=== PATIENT | male | born 1955 | race Caucasian/White ===

== ENCOUNTER 2017-11-25 15:47 | Inpatient (IN) | payer OTHER ==
[~2017-11-25] VITALS: Ht 190.5 cm; Wt 133.5 kg
--- NOTE | ~2017-11-25 | OP ---
PATIENT NAME: DARREL MAGUIRE MEDICAL RECORD: [id number] :53 LOCATION:D. D.2111 ADMISSION DATE:11/25/17 SURGEON: DAVID MCRAE MD DATE OF OPERATION: 11/27/2017 PREOPERATIVE DIAGNOSIS: Left axillary abscess. POSTOPERATIVE DIAGNOSIS: Left axillary abscess. Please see dimensions below. PROCEDURES: Excisional debridement of left axillary abscess with marsupialization and packing of the wound. The dimensions of the debridement, including margins, measured 2.2 x 2.4 cm and included skin and subcutaneous tissue as well as abscess cavity. The risks, possible complications, and alternatives to the procedure were explained to the patient. He elects to proceed. OPERATIVE COURSE: The patient was conveyed to the operating room electively on 11/27/2017. General anesthesia was induced by the anesthesia staff. The left axilla was sterilely prepped and draped. Through the use of sharp dissection, I excised a plug of skin and subcutaneous tissue as well as a portion of the abscess cavity. The dimensions are listed above. I then sharply debrided back to healthy bleeding tissue. Cultures were obtained. Blunt dissection was performed within the abscess cavity. I curetted out the abscess cavity as well. I then marsupialized the wound with a running-locking 3-0 Vicryl Rapide suture. I then irrigated the abscess cavity with hydrogen peroxide. I then packed the abscess cavity with two 2-inch Kerlix, which were tied together. A sterile dressing was applied. The patient was then extubated and conveyed to the postanesthesia care unit, where he was in stable condition. I am going to recommend that he stay in the hospital tomorrow and have the wound unpacked on Tuesday and then be dismissed home on oral antibiotics on Tuesday. TRANSINT:[id number] Voice Confirmation ID: [id number] DOCUMENT ID: [id number] DAVID MCRAE MD at 1042 CC: EPI JAMES MD [id number] DICTATION DATE: 11/27/17 0934 GRAFFITI CLEANER: 11/27/17 1555 DIS IN 11/29/17 [place] [id number] [place] [id number]
--- NOTE | ~2017-11-25 | PN ---
PATIENT:DARREL MAGUIRE MEDICAL RECORD: [id number] LOCATION:D.M2 D.211 ADMISSION DATE: 11/25/17 PROGRESS NOTE DATE OF SERVICE: 11/26/2017 ADDENDUM CHIEF COMPLAINT: Better. HISTORY: There is now some central softening in the area of cellulitis, which is now smaller. I think this represents some subcutaneous purulence that would benefit from incision and drainage versus excisional debridement. My plan will be for excisional debridement with marsupialization and packing of the wound. Palpation aggravates. Nothing alleviates. His symptoms are improved. They are nonradiating. This is a progress note addendum. For the typed portion of the progress note, please see the chart. This would include the past medical and surgical history, current medications, allergies, social history as well as family history. REVIEW OF SYSTEMS: No headache, no chest pain, no fever, no chills, no nausea, no vomiting. The review of systems is negative other than as is described above. PHYSICAL EXAMINATION: GENERAL: The patient does not appear acutely ill. He does not appear chronically ill. VITAL SIGNS: Reviewed. EARS: External ears appear normal. EYES: Extraocular movements are intact. NECK: Trachea is midline. CHEST: No intercostal retractions. PULMONARY: Nonlabored. No stridor. ABDOMEN: No peritonitis with movement. PSYCHIATRIC: Normal affect. NEUROLOGIC: Nonfocal, no lethargy. The patient answers questions appropriately, moves all extremities well. BACK: No thoracic kyphosis. LYMPHATIC: No lymphangitic streaking of the exposed extremities. INTEGUMENT: There is cellulitis as described above in the left axilla. IMPRESSION: Left axillary abscess, likely not due to hidradenitis suppurativa. PLAN: Drainage in the operating room tomorrow as described above. The risks, possible complications and alternatives to procedure were explained to the patient. He elects to proceed. TRANSINT:[id number] Voice Confirmation ID: [id number] DOCUMENT ID: [id number] PROGRESS NOTE [id number] DARREL MAGUIRE ROBERT MD at 1042 CC: [id number] DICTATION DATE: 11/26/171931 SEAMLESS TUBE ROLLER: 11/27/17 1518 DIS IN 11/29/17 [place] [id number] [place] [id number]
--- NOTE | ~2017-11-25 | HP ---
PATIENT: DARREL MAGUIRE MEDICAL RECORD: [id number] ACCOUNT: [id number] LOCATION:[facility].211 : 53 ADMISSION DATE: 11/25/17 HISTORY AND PHYSICAL EXAMINATION HISTORY OF PRESENT ILLNESS: This is a 62-year-old white male who presented to my office on 11/24/2017 complaining of pain, redness and swelling in the left axilla, started a couple of days prior. He had what appears to be an abscess in the axilla. There was no head, it seemed to be a little deeper than just there was a skin. I gave him a shot of Rocephin and started on clindamycin, had him come back on 11/25/2017. At that time, the mass had gotten almost to a size of a baseball and he developed cellulitis in the axilla and it stretched into the left upper chest area. He denies any fever. There was no drainage from this area, but with worsening symptoms, he is admitted for failed outpatient therapy of left axilla abscess with cellulitis. PAST MEDICAL HISTORY: He has hypertension. PAST SURGICAL HISTORY: None. ALLERGIES: PENICILLIN AND SULFA. MEDICATIONS: Home medications included amlodipine 5 mg once a day, losartan 100 mg once a day, fish oil 1000 mg one a day, and he was just started on clindamycin the day before admission. SOCIAL HISTORY: He is . FAMILY HISTORY: Father at 82. He had coronary artery disease and had an OK. Mother is alive and relatively healthy. HABITS: No tobacco, alcohol, or drugs. REVIEW OF SYSTEMS: GENERAL: No major weight changes. HEENT: No particular sinus or allergy problems. RESPIRATORY: No history of emphysema or asthma. CARDIAC: No coronary artery disease. GASTROINTESTINAL: No significant problem with reflux, constipation, or diarrhea. GENITOURINARY: No significant problems there. MUSCULOSKELETAL: No significant joint aches and pains. NEUROLOGIC: No headaches or seizures. PSYCHIATRIC: Denies depression or melancholia. PHYSICAL EXAMINATION: VITAL SIGNS: Temperature 99.0, pulse 90, respirations 18, blood pressure 119/82. GENERAL: He is awake and alert, does not appear to be in acute distress. HEENT: Unremarkable. NECK: Supple. HEART: Regular rate and rhythm. LUNGS: Clear. ABDOMEN: Soft, flat, nontender. EXTREMITIES: No edema. In the left axilla area, there is a painful mass almost HISTORY AND PHYSICAL [id number] TING,DARREL M a size of a baseball. There is no open wound, no head on this. There is corresponding cellulitis in the axilla and it spreads over the left chest. ASSESSMENT: Cutaneous abscess, left axilla with cellulitis. PLAN: We will start IV antibiotics. We will consult general surgery to see if they feel it needs to be opened and drained. Other tests and procedures as warranted. TRANSINT:[id number] Voice Confirmation ID: [id number] DOCUMENT ID: [id number] EPI JAMES MD at 1826 CC: [id number] DICTATION DATE: 11/27/17 0109 [facility] NURSE: 11/27/17 0853 ADM IN [facility] [address] [place] [address]
--- NOTE | ~2017-11-25 | CN ---
PATIENT NAME:DARREL MAGUIRE MEDICAL RECORD: [id number] : 53 LOCATION:D. D.2112 ADMIT DATE: 11/25/17 ACCOUNT: [id number] CONSULTING PHYSICIAN: DAVID MCRAE MD REFERRING PHYSICIAN: EPI JAMES MD DATE OF CONSULTATION: 11/25/2017 ADDENDUM CHIEF COMPLAINT: Infection. The patient has left axillary cellulitis. I cannot definitely tell whether there is drainable purulence or not. The area of cellulitis has been increasing and is now extending down on to the left breast and the left chest wall. The patient received some intramuscular antibiotic injections at his primary care physician's office as well as was placed on oral antibiotics. He failed outpatient treatment. Palpation aggravates. Nothing alleviates. Symptoms are dull. They are moderate in intensity. I would like to wait until a soft area within the area of cellulitis occurred or the infection begins to point before proceeding with incision and drainage or excisional debridement. This is a consultation note addendum. For the typed portion of the consult note, please see the chart. This would include the past medical and surgical history, current medications, allergies, social history as well as family history. REVIEW OF SYSTEMS: No nausea. No vomiting. No headache. No back pain. No abdominal pain. The review of systems is negative other than as is described above. PHYSICAL EXAMINATION: GENERAL: The patient does not appear acutely ill. He does not appear chronically ill. VITAL SIGNS: Reviewed. EARS: External ears appear normal. EYES: Extraocular movements are intact. NECK: Trachea is midline. CHEST: No intercostal retractions. PULMONARY: Nonlabored. No stridor. ABDOMEN: No peritonitis with movement. INTEGUMENT: As described above. PSYCHIATRIC: Normal affect. NEUROLOGIC: Nonfocal, no lethargy. The patient answers questions appropriately. Moves all extremities well. BACK: No thoracic kyphosis. LYMPHATICS: No lymphangitic streaking of the exposed extremities. IMPRESSION: Cellulitis versus early abscess of the left axilla. I do not think this represents hidradenitis suppurativa. PLAN: Continue IV antibiotics. I am going to add the vancomycin to the antibiotic regimen. Serial examinations and if the infected area begins to point or there is central softening of the tissues, then I will proceed with drainage in the operating room. TRANSINT:[id number] Voice Confirmation ID: [id number] DOCUMENT ID: [id number] CONSULT REPORT [id number] DARREL MAGUIRE ROBERT MD at 1042 CC: [id number] DICTATION DATE: 11/26/171929 DIRECTOR OF EDUCATION: 11/27/17 0150 DIS IN 11/29/17 [facility] [address] [place] [id number]
[2017-11-25 16:44] VITALS: BMI 37.0
[2017-11-25] MEDS ORDERED: COZAAR100 MG PO (16:49)
[2017-11-25] MEDS ORDERED: NORVASC5 MG PO (16:50)
[2017-11-25 18:32] LABS: BASOPHILS 0.3 % (0-2); EOSINOPHILS 0.8 % (0-7); HEMOGLOBIN 15.8 g/dL (13.5-17.5); IMMATURE GRANULOCYTES 0.2 % (0-5); LYMPHOCYTES 13.1 % (15-50); MCH 28.5 pg (26.0-34.0); MCHC 33.6 g/dL (31.0-37.0); MCV 84.7 fL (80.0-100.0); MEAN PLATELET VOLUME 9.9 fL (7.4-10.4); MONOCYTES 4.4 % (2-11); NEUTROPHILS 81.2 % (40-80); PLATELET COUNT 186 10x3/uL (130-400); RBC 5.55 10x6/uL (4.20-6.10); RDW 13.8 % (11.5-14.5)
[2017-11-25 18:40] LABS: ANION GAP 11.5 mmol/L (8-16); CALCIUM 8.6 mg/dL (8.5-10.1); CARBON DIOXIDE 26.5 mmol/L (21.0-32.0); CREATININE - SERUM 1.3 mg/dL (0.6-1.3)
[2017-11-25 20:00] VITALS: BP 119/82
[2017-11-26] VITALS: BP 117/76
[2017-11-26 04:00] VITALS: BP 119/66
[2017-11-26 09:47] VITALS: BP 103/75; BP 114/58
[2017-11-26 12:42] VITALS: BP 125/76
[2017-11-26 18:13] VITALS: BP 124/78
[2017-11-26 21:35] VITALS: BP 122/86
[2017-11-27 01:24] VITALS: BP 109/70
[2017-11-27 06:30] VITALS: BP 118/79
[2017-11-27 09:10] VITALS: BP 119/85
[2017-11-27 16:26] VITALS: BP 117/76
[2017-11-27 20:43] VITALS: BP 136/82
[2017-11-28 00:30] VITALS: BP 116/73
[2017-11-28 09:19] VITALS: BP 139/83
[2017-11-28 11:39] VITALS: BP 140/79
[2017-11-28 12:09] VITALS: Ht 190.5 cm; Wt 133.5 kg
[2017-11-28 15:32] VITALS: BP 138/81
[2017-11-28 19:00] VITALS: BP 151/81
[2017-11-29 04:00] VITALS: BP 132/76
[2017-11-29 08:14] VITALS: BP 142/84
[2017-11-29 11:53] VITALS: BP 155/91
[2017-11-29] MEDS ORDERED: HYDROCODONE-APA1 TAB PO (13:59)
[2017-11-29 16:29] VITALS: BP 155/94
== END 2017-11-29 19:12 | disposition home or self-care (01) | DRG 572 ==
LOC: D.M2 15:47
PROVIDERS: Family Medicine; Surgery
PROC: 0JBF0ZZ Excision of Left Upper Arm Subcutaneous Tissue and Fascia, Open Approach (ICD-10-PCS; principal; 2017-11-27 09:00)
DX: L03.112 Cellulitis of left axilla (principal); B95.62 Methicillin resistant Staphylococcus aureus infection as the cause of diseases classified elsewhere; I10 Essential (primary) hypertension

== ENCOUNTER → 2018-04-20 11:24 | Outpatient (CLI) | payer OTHER ==
[2017-11-28 12:09] VITALS: BMI 36.4
[~2018-04-20 11:24] MED LIST: COZAAR100 MG PO; HYDROCODONE-APA1 TAB PO; NORVASC5 MG PO
== END | disposition home or self-care (01) ==
LOC: D.US 11:24
DX: R60.0 Localized edema (principal); M79.662 Pain in left lower leg

== ENCOUNTER → 2018-08-04 09:03 | Outpatient (CLI) | payer OTHER ==
[2017-11-28 12:09] VITALS: BMI 36.4
== END | disposition home or self-care (01) ==
LOC: D.US 09:03
DX: I82.402 Acute embolism and thrombosis of unspecified deep veins of left lower extremity (principal)

== ENCOUNTER 2019-11-07 09:00 | Outpatient (CLI) | payer BC ==
[2017-11-28 12:09] VITALS: BMI 36.4
== END 2019-11-07 09:01 | disposition home or self-care (01) ==
LOC: D.US 09:00
PROVIDERS: ATTEND Family Medicine
DX: I82.402 Acute embolism and thrombosis of unspecified deep veins of left lower extremity (principal)

== ENCOUNTER → 2020-12-12 08:59 | Outpatient (CLI) | payer OTHER ==
[2017-11-28 12:09] VITALS: BMI 36.4
== END | disposition home or self-care (01) ==
LOC: D.US 08:59
PROVIDERS: ATTEND Family Medicine
DX: I82.402 Acute embolism and thrombosis of unspecified deep veins of left lower extremity (principal)